=== PATIENT | male | born 1985 | race Caucasian/White ===

== ENCOUNTER 2023-11-02 18:58 | Emergency (ER) | payer OTHER ==
[2023-11-02 19:35] VITALS: BP 156/83; PULSE 80; RESP 18; TEMP 98.1; BMI 28.5
[2023-11-02] MEDS: KETOROLAC TROMETHAMINE 30 MG/1 ML VIAL IM ONE (20:12)
[2023-11-02] MEDS ORDERED: KETOROLAC TROMETHAMINE 30 MG/1 ML VIAL ONE (20:13)
== END 2023-11-02 20:17 | disposition home or self-care (01) ==
LOC: JERFT 18:58 → JER 18:58 → JERFT 20:17
PROC: 3E0133Z Introduction of Anti-inflammatory into Subcutaneous Tissue, Percutaneous Approach (ICD-10-PCS; principal; 2023-11-02)
DX: S46.811A Strain of other muscles, fascia and tendons at shoulder and upper arm level, right arm, initial encounter (principal); V49.40XA Driver injured in collision with unspecified motor vehicles in traffic accident, initial encounter
CPT/HCPCS: 73030-TC-RT-FY; 99284-25